=== PATIENT | male | born 1965 | race Caucasian/White ===

== ENCOUNTER 2021-08-20 04:58 | Emergency (ER) | payer OTHER ==
[~2021-08-20] VITALS: Ht 182.9 cm; Wt 99.8 kg
[2021-08-20] MEDS ORDERED: HYDROCODONE/APAP 5/325MG TABLET ONE (05:22)
[2021-08-20] MEDS ORDERED: TDAP [DIPH/PERTUSSIS/TET] 0.5 ML VIAL IM ONE ×2 (05:23→05:30)
[2021-08-20] MEDS ORDERED: HYDROCODONE/APAP 5/325MG TABLET PO ONE (05:30)
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
[2021-08-20] MEDS ORDERED: LIDOCAINE 2% JEL 5 ML TUBE ONE (06:43)
--- NOTE | 2021-08-20 06:46 | NUR ---
ER AT BEDSIDE
[2021-08-20] MEDS ORDERED: LET SOLN TOPICAL 8 ML UDC TP ONE (07:00)
[2021-08-20] MEDS ORDERED: LIDOCAINE/PRILOCAINE (5GM) 5 GM TUBE TP ONE (07:00)
[2021-08-20 07:23] VITALS: BP 128/68
== END 2021-08-20 07:23 | disposition home or self-care (01) ==
LOC: ER 05:03
DX: S01.81XA Laceration without foreign body of other part of head, initial encounter (principal); S05.42XA Penetrating wound of orbit with or without foreign body, left eye, initial encounter; Y04.0XXA Assault by unarmed brawl or fight, initial encounter; Y93.89 Activity, other specified; Y92.89 Other specified places as the place of occurrence of the external cause; Y99.8 Other external cause status
CPT/HCPCS: 12013; 70450; 70486; 90471; 90715; 99285; A6403

== ENCOUNTER 2021-08-25 12:51 | Emergency (ER) | payer OTHER ==
[~2021-08-25] VITALS: Ht 182.9 cm; Wt 99.8 kg
[2021-08-25 12:58] VITALS: BP 130/75
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
--- NOTE | 2021-08-25 13:20 | NUR ---
Patient discharged to home in stable condition. Written and verbal after care instructions given. Patient verbalizes understanding of instruction.
== END 2021-08-25 13:30 | disposition home or self-care (01) ==
LOC: ER 12:52
DX: S01.81XD Laceration without foreign body of other part of head, subsequent encounter (principal); X58.XXXD Exposure to other specified factors, subsequent encounter